=== PATIENT | female | born 1965 | race African-American/Black ===

== ENCOUNTER 2018-01-11 23:12 | Emergency (ER) | payer SELFPAY ==
[2018-01-11] MEDS: fentaNYL PF VIAL 100 MCG/2 ML VIAL IV (23:18)
[2018-01-11] MEDS: KETAMINE HCL 500 MG/10 ML VIAL. IV (23:20)
[2018-01-11] MEDS: LABETALOL 20 MG/4 ML DISP.SYRIN. IVP (23:35)
[2018-01-11 23:39] LABS: ADD MAN DIFF? NO
[2018-01-11 23:43] LABS: BASO % 1 % (0-3); EOS # 0.1 x10^3/uL (0.0-0.7); EOS % 1 % (0-3); HEMATOCRIT 36.8 % (36.0-47.0); HEMOGLOBIN 12.2 g/dL (12.0-15.5); LYMPH # 2.5 x10^3/uL (1.0-4.8); LYMPH % 46 % (24-48); MEAN CORPUSCULAR HEMOGLOBIN 27 pg (25-35); MEAN CORPUSCULAR HGB CONC 33 g/dL (31-37); MEAN CORPUSCULAR VOLUME 81 fL (79-100); MONO # 0.3 x10^3/uL (0.0-1.1); MONO % 6 % (0-9); NEUT # 2.4 x10^3uL (1.8-7.7); NEUT % 46 % (31-73); PLATELET COUNT 235 x10^3/uL (140-400); RED BLOOD COUNT 4.56 x10^6/uL (3.50-5.40); RED CELL DISTRIBUTION WIDTH 15.1 % (11.5-14.5); WHITE BLOOD COUNT 5.3 x10^3/uL (4.0-11.0)
[2018-01-11] MEDS: DIPHTH,PERTUSS(ACELL),TET TOX 0.5 ML DISP.SYRIN. VAX IM (23:45)
[2018-01-11 23:49] LABS: ANION GAP 6 (6-14); BLOOD UREA NITROGEN 22 mg/dL (7-20); BUN/CREATININE RATIO 14 (6-20); CARBON DIOXIDE 30 mmol/L (21-32); CHLORIDE 102 mmol/L (98-107); CREATININE 1.6 mg/dL (0.6-1.0); GFR 40.8; GLUCOSE 102 mg/dL (70-99); POTASSIUM 3.3 mmol/L (3.5-5.1); SODIUM 138 mmol/L (136-145)
[2018-01-11 23:51] LABS: ETHANOL < 10 mg/dL (0-10)
[2018-01-11 23:53] LABS: INR 0.9 (0.8-1.1); PROTHROMBIN TIME PATIENT 12.1 SEC (11.7-14.0)
[2018-01-11 23:57] LABS: ALBUMIN 4.3 g/dL (3.4-5.0); ALK PHOS 191 U/L (46-116); ALT (SGPT) 16 U/L (14-59); AST (SGOT) 27 U/L (15-37); TOTAL BILIRUBIN 0.5 mg/dL (0.2-1.0); TOTAL PROTEIN 8.5 g/dL (6.4-8.2)
[2018-01-12 00:27] LABS: BARBITURATES NEG (NEG); BENZODIAZEPINES NEG (NEG); CANNABINOIDS POS (NEG); COCAINE POS (NEG); METHADONE NEG (NEG); OPIATES NEG (NEG); PHENCYCLIDINE NEG (NEG)
[2018-01-12 00:28] LABS: AMPHETAMINE/METHAMPHETAMINE NEG (NEG); ETHANOL, URINE NEG (NEG)
[2018-01-12] MEDS: hydrALAZINE 20 MG/ML VIAL. IVP (02:07)
[2018-01-12] MEDS: cloNIDine HCL 0.1 MG TABLET PO (03:00)
== END 2018-01-12 03:02 | disposition home or self-care (01) ==
LOC: ER 23:12
DX: S01.81XA Laceration without foreign body of other part of head, initial encounter (principal); I10 Essential (primary) hypertension; Z88.0 Allergy status to penicillin; Z88.8 Allergy status to other drugs, medicaments and biological substances; Z91.048 Other nonmedicinal substance allergy status; Y08.89XA Assault by other specified means, initial encounter; Y93.89 Activity, other specified; Y92.89 Other specified places as the place of occurrence of the external cause; Y99.8 Other external cause status
CPT/HCPCS: 36415; 70450; 70486; 72125; 73130; 80053; 80307; 85025; 85610; 90471; 90715; 96374; 96375; 99285-25; G0480; J0360; J3010; J3490

== ENCOUNTER 2021-02-21 11:19 | Emergency (ER) | payer OTHER ==
[~2021-02-21] VITALS: Ht 172.7 cm; Wt 51.6 kg
[2021-02-21] MEDS ORDERED: DIPH,PERTUSS(ACELL),TET VAC/PF 0.5 ML SYRINGE. VAX IM ONE (11:45)
[2021-02-21] MEDS ORDERED: ACETAMINOPHEN 500 MG TABLET PO ONE (12:15)
[2021-02-21] MEDS ORDERED: IBUPROFEN 200 MG TABLET. PO ONE (12:15)
--- NOTE | 2021-02-21 12:22 | RAD ---
EXAMINATION: US DPLX VENOUS EXTREMITY LOWER LT (LOWER EXTREMITY VENOUS ULTRASOUND) CLINICAL HISTORY: LEFT LEG SWELLING AND PAIN FOR TWO DAYS TECHNIQUE: Sonographic grayscale images obtained of the left lower extremity deep venous system with color flow Doppler, compression, and augmentation techniques as indicated. Images obtained and store d in a permanent archive. COMPARISON: None FINDINGS: No evidence of absent flow or incompressibility within the common femoral vein, femoral vein, or popl iteal vein. Visualized calf veins appear patent on limited evaluation. IMPRESSION: No evidence of left lower extremity DVT. Electronically signed by: Winston Nolan DO (02/21/2021 12:20 PM) [id number]
--- NOTE | 2021-02-21 13:06 | RAD ---
EXAM: AP, lateral and oblique views of the left knee AP and lateral views left tibia/fibula DATE: 02/21/2021 12:13 PM INDICATION: Reason: LEFT KNEE SWELLING, FELL / Spl. Instructions: / History: COMPARISON: No Prior FINDINGS: No acute fracture or dislocation. Moderate left knee joint effusion. Joint spaces are preserved witho ut significant degenerative/proliferative change. IMPRESSION: 1. No acute fracture or dislocation. 2. Moderate left knee joint effusion. Electronically signed by: Praful Arthur MD (02/21/2021 1:04 PM) [id number]
[2021-02-21] MEDS ORDERED: IBUP-1027 PO (14:09)
[2021-02-21] MEDS ORDERED: CLIN150C16 PO (14:09)
--- NOTE | 2021-02-21 14:10 | PHYS DOC ---
Past Medical History Past Medical History: Hypertension, Unknown Additional Past Medical Histor: brain aneurysm Past Surgical History: Other Additional Past Surgical Histo: hand surgery 20 years ago, brain surgery Smoking Status: Current Every Day Smoker Additional Information: 07/08 PPD Alcohol Use: None Drug Use: None General Adult EDM: Chief Complaint: MECHANICAL FALL HPI: HPI: Patient is a 55 year old female who was brought here by EMS from home due to left lower extremity pain. Patient said 2 days ago she scratched left leg against the metal bed frame, causing a wound there. The area became swelling. Patient also has history of left knee joint effusion. Patient said she was walking today, twisted her left leg , causing left leg pain and left knee pain so she called EMS to come here for evaluation. Patient denies any cough or fever, no chest pain, no abdominal pain, no trouble breathing. Review of Systems: Review of Systems: Constitutional: Denies fever or chills. [] Eyes: Denies change in visual acuity. [] HENT: Denies nasal congestion or sore throat. [] Respiratory: Denies cough or shortness of breath. [] Cardiovascular: Denies chest pain or edema. [] GI: Denies abdominal pain, nausea, vomiting, bloody stools or diarrhea. [] : Denies dysuria. [] Musculoskeletal: Positive for left knee joint pain, left leg pain. Integument: Positive for a wound on the left lower leg. Neurologic: Denies headache, focal weakness or sensory changes. [] Endocrine: Denies polyuria or polydipsia. [] Lymphatic: Denies swollen glands. [] Psychiatric: Denies depression or anxiety. [] Heart Score: C/O Chest Pain: N/A Risk Factors: Risk Factors: DM, Current or recent (<one month) smoker, HTN, HLP, family history of CAD, obesity. Risk Scores: Score 0 - 3: 2.5% MACE over next 6 weeks - Discharge Home Score 4 - 6: 20.3% MACE over next 6 weeks - Admit for Clinical Observation Score 7 - 10: 72.7% MACE over next 6 weeks - Early Invasive Strategies Current Medications: Current Medications Medications (Trade) Dose Ordered Sig/Debra Start Time Stop Time Status Last Admin Dose Admin Acetaminophen (Tylenol) 1,000 mg 1X ONCE 02/21/21 12:15 8/18/21 12:16 DC 02/21/21 12:44 1,000 MG Diphtheria/ Tetanus/Acell Pertussis (ADACEL TDap SYRINGE) 0.5 ml ONCE ONCE 02/21/21 11:45 02/21/21 11:46 DC 02/21/21 12:46 0.5 ML Ibuprofen (Motrin) 600 mg 1X ONCE 02/21/21 12:15 02/21/21 12:16 DC 02/21/21 12:45 600 MG Allergies: Allergies: Allergies Coded Allergies Type Severity Reaction Last Updated Verified lisinopril Allergy Severe angioedema 02/21/21 No Penicillins Allergy Intermediate hives 02/21/21 No glycerin Allergy Intermediate rash, hives 02/21/21 No Physical Exam: PE: Constitutional: Well developed, well nourished, no acute distress, non-toxic appearance. [] HENT: Normocephalic, atraumatic, bilateral external ears normal, oropharynx moist, no oral exudates, nose normal. [] Eyes: PERRLA, EOMI, conjunctiva normal, no discharge. [] Neck: Normal range of motion, no tenderness, supple, no stridor. [] Cardiovascular:Heart rate regular rhythm, no murmur [] Lungs & Thorax: Bilateral breath sounds clear to auscultation [] Abdomen: Bowel sounds normal, soft, no tenderness, no masses, no pulsatile masses. [] Skin: Warm, dry, no erythema, no rash. [] Back: No tenderness, no CVA tenderness. [] Extremities: The left knee is full range of motion with minimal swelling , no erythema. Left leg is mildly swelling, there is a vertical wound about 3 cm on the lateral part of distal left leg, warm to touch with erythema at the wound edge, no purulent drainage. Neurologic: Alert and oriented X 3, normal motor function, normal sensory function, no focal deficits noted. [] Psychologic: Affect normal, judgement normal, mood normal. [] Current Patient Data: Vital Signs: Vital Signs Date Time Temp Pulse Resp B/P (MAP) Pulse Ox O2 Delivery O2 Flow Rate FiO2 02/21/21 11:27 98.5 75 18 149/70 (83) 100 Room Air 98.5 EKG: EKG: [] Radiology/Procedures: Radiology/Procedures: [][facility] [address] [place] [address] IMAGING REPORT Signed PATIENT: FROILAN BHATTI ACCOUNT: [id number] : 1965 LOCATION: ER AGE: 55 SEX: F EXAM STATUS: REG ER ORD. PHYSICIAN: RAJWINDER PEREZ DO REASON: LEFT LEG SWELLING AND PAIN FOR TWO DAYS PROCEDURE: VENOUS LOWER EXTREMITY LEFT EXAMINATION: US DPLX VENOUS EXTREMITY LOWER LT (LOWER EXTREMITY VENOUS ULTRASOUND) CLINICAL HISTORY: LEFT LEG SWELLING AND PAIN FOR TWO DAYS TECHNIQUE: Sonographic grayscale images obtained of the left lower extremity deep venous system with color flow Doppler, compression, and augmentation techniques as indicated. Images obtained and stored in a permanent archive. COMPARISON: None FINDINGS: No evidence of absent flow or incompressibility within the common femoral vein, femoral vein, or popliteal vein. Visualized calf veins appear patent on limited evaluation. IMPRESSION: No evidence of left lower extremity DVT. Electronically signed by: Winston Patiño DO (02/21/2021 12:20 PM) [id number] DICTATED and SIGNED BY: WINSTON PATIÑO DO DATE: 02/21/21 [id number] [facility] [address] [place] [address] IMAGING REPORT Signed PATIENT: FROILAN BHATTI ACCOUNT: [id number] : 1965 LOCATION: ER AGE: 55 SEX: F EXAM STATUS: REG ER ORD. PHYSICIAN: RAJWINDER PEREZ DO REASON: LEFT KNEE SWELLING, FELL PROCEDURE: KNEE LEFT 3V EXAM: AP, lateral and oblique views of the left knee AP and lateral views left tibia/fibula DATE: 02/21/2021 12:13 PM INDICATION: Reason: LEFT KNEE SWELLING, FELL / Spl. Instructions: / History: COMPARISON: No Prior FINDINGS: No acute fracture or dislocation. Moderate left knee joint effusion. Joint spaces are preserved without significant degenerative/proliferative change. IMPRESSION: 1. No acute fracture or dislocation. 2. Moderate left knee joint effusion. Electronically signed by: Praful Murrell MD (02/21/2021 1:04 PM) [id number] DICTATED and SIGNED BY: PRAFUL MURRELL MD DATE: 02/21/21 [id number] 0 Course & Med Decision Making: Course & Med Decision Making Pertinent Labs and Imaging studies reviewed. (See chart for details) Patient is a 55-year-old female who present to ER due to left knee pain, left leg pain. Patient had a cut on her left distal leg area with cellulitis apparance. There is no evidence of DVT. X-ray of the left tib-fib and left knee did not show any fracture or dislocation. Patient had modest left knee joint effusion. No redness tender to palpation on her left knee area, no evidence of infection there. Patient be discharged home with clindamycin to prevent infection from the wound on her left lower extremity. Patient will need to follow-up with orthopedic for outpatient evaluation of her left knee joint effusion. Dragon Disclaimer: Dragon Disclaimer: This electronic medical record was generated, in whole or in part, using a voice recognition dictation system. Departure Departure Impression: Primary Impression: Cellulitis of left lower leg Additional Impression: Knee effusion, left Disposition: 01 HOME / SELF CARE / HOMELESS Condition: STABLE Referrals: NO PCP (PCP) SERGIO SHARMA Jr. DO Please call this orthopedic doctor for outpatient evaluation and treatment of your left knee swelling next week. Patient Instructions: Cellulitis, Knee Effusion Additional Instructions: Thank you for visiting our Emergency Department. We appreciate you trusting us with your care. If any additional problems come up don't hesitate to return to visit us. Please follow up with your primary care provider so they can plan additional care if needed and know about the problem that you had. If symptoms worsen come back to the Emergency Department. Any concerning symptoms that start such as chest pain, shortness of air, weakness or numbness on one side of the body, running high fevers or any other concerning symptoms return to the ER. Scripts Clindamycin Hcl (CLINDAMYCIN HCL) 150 Mg Capsule 2 CAP PO QID for 10 Days, #80 CAP Prov: RAJWINDER PEREZ DO 02/21/21 Ibuprofen (IBUPROFEN) 400 Mg Tablet 400 MG PO PRN Q6HRS PRN for PAIN, #30 TAB Prov: RAJWINDER PEREZ DO 02/21/21 RAJWINDER PEREZ DO Feb 21, 2021 14:09
[2021-02-21 14:31] VITALS: BP 161/86
== END 2021-02-21 14:30 | disposition home or self-care (01) ==
LOC: ER 11:19
DX: L03.116 Cellulitis of left lower limb (principal); M25.462 Effusion, left knee; I10 Essential (primary) hypertension; F17.200 Nicotine dependence, unspecified, uncomplicated; Z88.0 Allergy status to penicillin; Z88.8 Allergy status to other drugs, medicaments and biological substances
CPT/HCPCS: 73562; 73590; 90471; 90715; 93971; 99285-25